=== PATIENT | male | born 1985 | race Caucasian/White ===

== ENCOUNTER 2016-08-27 15:19 | Emergency (ER) | payer OTHER ==
[~2016-08-27] VITALS: Ht 167.6 cm; Wt 79.4 kg
[2016-08-27] MEDS ORDERED: NAPROSYN500 MG PO (16:48)
[2016-08-27] MEDS ORDERED: HYDROCODONE-AP1 EAC6 PO (16:56)
[2016-08-27 17:00] VITALS: BP 141/90
== END 2016-08-27 17:00 | disposition home or self-care (01) ==
LOC: ER 15:19
DX: S62.318A Displaced fracture of base of other metacarpal bone, initial encounter for closed fracture (principal); F10.99 Alcohol use, unspecified with unspecified alcohol-induced disorder; W22.09XA Striking against other stationary object, initial encounter; Y93.89 Activity, other specified; Y92.89 Other specified places as the place of occurrence of the external cause; Y99.8 Other external cause status